=== PATIENT | female | born 1935 | race Caucasian/White ===

== ENCOUNTER 2024-06-20 07:50 | Day surgery (SDC) | payer MEDICARE, OTHER ==
[2024-06-20] MEDS ORDERED: Propofol 200 MG/20 ML SDV IV ONE (07:51)
[2024-06-20] MEDS ORDERED: Sodium Chloride 0.9% 10 ML Syringe FLUSH PRN (08:30)
[2024-06-20] MEDS: Lactated Ringers 1,000 ML IV SCH (08:55)
[2024-06-20 11:36] VITALS: BP 138/60; PULSE 55
== END 2024-06-20 11:15 | disposition home or self-care (01) ==
LOC: FB.SDS 07:50
PROVIDERS: ATTEND Surgery
DX: K21.00 Gastro-esophageal reflux disease with esophagitis, without bleeding (principal); K29.50 Unspecified chronic gastritis without bleeding; I48.91 Unspecified atrial fibrillation; Z79.82 Long term (current) use of aspirin; Z79.899 Other long term (current) drug therapy; Z88.0 Allergy status to penicillin; Z88.5 Allergy status to narcotic agent; Z88.8 Allergy status to other drugs, medicaments and biological substances
CPT/HCPCS: 00731; 88305; 88341; 88342; 99100; J2704; J7120